=== PATIENT | male | born 1980 | race Two or more races ===

== ENCOUNTER 2019-10-30 00:33 | Inpatient (IN) | payer BC, MEDICAID ==
[~2019-10-30] VITALS: Ht 180.3 cm; Wt 110.2 kg
[~2019-10-30 00:33] MED LIST: ASPI-404 PO; LISI-275 PO
[2019-10-30 01:15] LABS: Basophils # (auto) 0.1 10 ^3/uL (0-0.2); Basophils % (auto) 0.6 % (0.0-2.0); Eosinophils # (auto) 0.1 10 ^3/uL (0-0.8); Eosinophils % (auto) 0.5 % (0.0-7.0); Hematocrit 44.8 % (41.0-53.0); Hemoglobin 15.2 g/dL (13.5-17.5); Lymphocytes # (auto) 2.5 10 ^3/uL (0.4-5.4); Lymphocytes % (auto) 18.7 % (10.0-50.0); Mean Corpuscular Hemoglobin 27.4 pg (28.0-32.0); Mean Corpuscular Hgb Conc. 33.8 g/dL (32.0-36.0); Monocytes # (auto) 0.7 10 ^3/uL (0-1.3); Monocytes % (auto) 5.7 % (0.0-12.0); Neutrophils # (auto) 9.8 10 ^3/uL (1.6-8.6); Neutrophils % (auto) 74.5 % (37.0-80.0); Nucleated Red Blood Cells % 0.1 %; Platelet Count (auto) 246 10^3/uL (140-450); Red Blood Cells 5.53 10^6/uL (4.5-5.90); Red Cell Distribution Width 14.4 % (11.8-14.3); White Blood Cell 13.1 10^3/uL (4.4-10.8)
[2019-10-30 01:35] LABS: Albumin 3.6 g/dL (3.4-5.0); Amylase 37 U/L (25-115); Anion Gap 7 (5-15); BUN/Creatinine Ratio 14.3; Blood Urea Nitrogen 12 mg/dL (7-18); Carbon Dioxide 24 mmol/L (21-32); Chloride 101 mmol/L (98-107); GFR African American 130 mL/min; GFR Non-African American 107 mL/min; Glucose 238 mg/dL (74-106); Lipase 86 U/L (73-393); Magnesium 2.1 mg/dL (1.6-2.6); Potassium 3.7 mmol/L (3.5-5.1); Sodium 132 mmol/L (136-145)
[2019-10-30 01:40] LABS: Alanine Aminotransferase 48 U/L (16-61); Alkaline Phosphatase 78 U/L (45-117); Aspartate Aminotransferase 19 U/L (15-37); Bilirubin, Total 0.3 mg/dL (0.2-1.0); Total Protein 8.1 g/dL (6.4-8.2)
[2019-10-30] MEDS ORDERED: ONDANSETRON HCL 4 MG/2 ML VIAL IV ONE (02:15)
[2019-10-30] MEDS ORDERED: MORPHINE SULFATE 4 MG/ML SYR/VIAL IV ONE ×2 (02:15→04:30)
[2019-10-30 02:21] LABS: INR 1.01 (0.9-1.15); Partial Thromboplastin Time 28.7 sec (23.64-32.05)
[2019-10-30] MEDS ORDERED: MORPHINE SULF INJ 2 MG/ML SYRINGE 1ML IV ONE (03:00)
[2019-10-30 03:05] LABS: Urine WBC None Seen /hpf (0 - 3)
[2019-10-30 03:34] LABS: Urine Amorphous Crystal FEW /hpf (None Seen); Urine Bacteria NONE SEEN /hpf (None Seen); Urine Blood Negative /uL (Negative); Urine Specific Gravity 1.023 (1.001-1.035)
[2019-10-30] MEDS ORDERED: SODIUM CHLORIDE 0.9% 1,000 ML IV SCH ×2 (05:48→19:25)
[2019-10-30] MEDS ORDERED: SODIUM CHLORIDE 0.9% 1,000 ML IV ONE (06:00)
[2019-10-30] MEDS ORDERED: ACETAMINOPHEN 325 MG TAB PO PRN (06:00)
[2019-10-30] MEDS ORDERED: DEXTROSE (50%) 50ML SYRG IV PRN (06:00)
[2019-10-30] MEDS ORDERED: DOCUSATE SOD 100 MG CAP PO PRN (06:00)
[2019-10-30 07:18] LABS: Basophils # (auto) 0.1 10 ^3/uL (0-0.2); Basophils % (auto) 0.4 % (0.0-2.0); Eosinophils # (auto) 0 10 ^3/uL (0-0.8); Hematocrit 42.7 % (41.0-53.0); Hemoglobin 14.6 g/dL (13.5-17.5); Lymphocytes # (auto) 1.7 10 ^3/uL (0.4-5.4); Lymphocytes % (auto) 10.6 % (10.0-50.0); Mean Corpuscular Hemoglobin 27.6 pg (28.0-32.0); Mean Corpuscular Hgb Conc. 34.1 g/dL (32.0-36.0); Mean Corpuscular Volume 81.1 fL (80.0-100.0); Monocytes # (auto) 0.8 10 ^3/uL (0-1.3); Monocytes % (auto) 4.9 % (0.0-12.0); Neutrophils # (auto) 13.2 10 ^3/uL (1.6-8.6); Neutrophils % (auto) 84.1 % (37.0-80.0); Platelet Count (auto) 210 10^3/uL (140-450); Red Blood Cells 5.26 10^6/uL (4.5-5.90); Red Cell Distribution Width 14.4 % (11.8-14.3); White Blood Cell 15.7 10^3/uL (4.4-10.8)
[2019-10-30 07:37] LABS: BUN/Creatinine Ratio 17.9
[2019-10-30] MEDS: ACCU-CHEK COMFORT CURVE STRIP VI SCH ×4 (07:44→20:01)
[2019-10-30] MEDS: InsuLIN REG 1unit/0.01ml Soln (100units/ml) SC SCH ×4 (07:45→20:12)
[2019-10-30] MEDS: MORPHINE SULFATE 4 MG/ML SYR/VIAL IV PRN ×2 (07:46→23:49)
[2019-10-30] MEDS: ONDANSETRON HCL 4 MG/2 ML VIAL IV PRN ×2 (07:46→23:48)
[2019-10-30] MEDS ORDERED: cefTRIAXone 1GM/50ML D5W 50 ML IV SCH (10:00)
[2019-10-30] MEDS: LISINOPRIL 20 MG TAB PO SCH (11:07)
[2019-10-30 12:00] VITALS: BP 132/73
[2019-10-30] MEDS: HYDROcodone-ACET 5/325MG TAB PO PRN ×2 (12:48→20:00)
[2019-10-30 12:50] VITALS: BP 157/87
[2019-10-30] MEDS ORDERED: LIDOCAINE 2%HCL (LOCAL ANESTH.) INJ 20ML MDV ONE (14:30)
[2019-10-30] MEDS ORDERED: fentaNYL CITRATE 100 MCG/2 ML VL IV ONE (14:45)
[2019-10-30] MEDS ORDERED: fentaNYL CITRATE 100 MCG/2 ML VL ONE (14:47)
[2019-10-30 16:53] VITALS: BP 111/53
[2019-10-30] MEDS ORDERED: levoFLOXacin 750MG 150 ML IV ONE (18:15)
[2019-10-30 21:59] VITALS: BP 110/67
[2019-10-30] MEDS ORDERED: INSULIN LANTUS (GLARGINE) 1 /0.01ml (100units/ml) SC SCH (22:00)
[2019-10-31] MEDS: ACCU-CHEK COMFORT CURVE STRIP VI SCH ×5 (00:08→16:28)
[2019-10-31] MEDS: InsuLIN REG 1unit/0.01ml Soln (100units/ml) SC SCH ×5 (00:10→16:29)
[2019-10-31] MEDS: HYDROcodone-ACET 5/325MG TAB PO PRN ×3 (04:20→12:57)
[2019-10-31 05:40] VITALS: BP 130/78
[2019-10-31] MEDS: LISINOPRIL 20 MG TAB PO SCH (09:03)
[2019-10-31 09:04] VITALS: BP 153/82
[2019-10-31] MEDS ORDERED: levoFLOXacin 750MG 150 ML IV SCH (10:00)
[2019-10-31] MEDS: MORPHINE SULFATE 4 MG/ML SYR/VIAL IV PRN (11:13)
[2019-10-31 13:13] VITALS: BP 156/83
[2019-10-31 14:21] LABS: Basophils # (auto) 0.1 10 ^3/uL (0-0.2); Basophils % (auto) 0.5 % (0.0-2.0); Eosinophils # (auto) 0 10 ^3/uL (0-0.8); Eosinophils % (auto) 0.1 % (0.0-7.0); Hematocrit 41.5 % (41.0-53.0); Hemoglobin 14.4 g/dL (13.5-17.5); Lymphocytes # (auto) 1.5 10 ^3/uL (0.4-5.4); Lymphocytes % (auto) 11.6 % (10.0-50.0); Mean Corpuscular Hemoglobin 28.3 pg (28.0-32.0); Mean Corpuscular Hgb Conc. 34.7 g/dL (32.0-36.0); Mean Corpuscular Volume 81.5 fL (80.0-100.0); Monocytes # (auto) 0.9 10 ^3/uL (0-1.3); Monocytes % (auto) 6.9 % (0.0-12.0); Neutrophils # (auto) 10.7 10 ^3/uL (1.6-8.6); Neutrophils % (auto) 80.9 % (37.0-80.0); Platelet Count (auto) 219 10^3/uL (140-450); Red Cell Distribution Width 14.3 % (11.8-14.3); White Blood Cell 13.2 10^3/uL (4.4-10.8)
[2019-10-31 14:43] LABS: BUN/Creatinine Ratio 17.9; Calcium 8.6 mg/dL (8.5-10.1); Potassium 3.8 mmol/L (3.5-5.1)
[2019-10-31] MEDS: ONDANSETRON HCL 4 MG/2 ML VIAL IV PRN (15:00)
[2019-10-31 16:47] VITALS: BP 139/85
[2019-10-31 17:20] VITALS: BP_SYST 139; BP_SYST 148; BP_DIAS 78; BP_DIAS 85
== END 2019-10-31 18:08 | disposition home or self-care (01) | DRG 699 ==
LOC: ER 00:33 → OVERFLOW 00:34 → WEST WING 08:38
PROVIDERS: ADMIT Hospitalist; ATTEND Internal Medicine Nephrology
PROC: 0T9 Urinary System, Drainage (ICD-10-PCS; principal; 2019-10-30)
DX: N28.1 Cyst of kidney, acquired (principal); R65.10 Systemic inflammatory response syndrome (SIRS) of non-infectious origin without acute organ dysfunction; I10 Essential (primary) hypertension; E66.9 Obesity, unspecified; E11.9 Type 2 diabetes mellitus without complications; Z82.49 Family history of ischemic heart disease and other diseases of the circulatory system; Z90.49 Acquired absence of other specified parts of digestive tract; Z79.899 Other long term (current) drug therapy; Z83.3 Family history of diabetes mellitus; Z84.1 Family history of disorders of kidney and ureter
CPT/HCPCS: 10022; 36415; 71046; 74150; 74176; 76775; 76942; 77012; 80048; 80053; 81001; 82150; 82962; 83036; 83690; 83735; 84484; 85025; 85610; 85730; 87205; 93005; A4223; G0378; J0696; J1815; J1956; J2405

== ENCOUNTER 2019-11-06 11:19 | Inpatient (IN) | payer BC ==
[~2019-11-06] VITALS: Ht 180.3 cm; Wt 108.0 kg
[~2019-11-06 11:19] MED LIST changes: -ASPI-404 PO; +ASPI-543 PO
[2019-11-06 12:11] LABS: Basophils # (auto) 0.1 10 ^3/uL (0-0.2); Basophils % (auto) 0.9 % (0.0-2.0); Eosinophils # (auto) 0.1 10 ^3/uL (0-0.8); Eosinophils % (auto) 1.7 % (0.0-7.0); Hematocrit 41.2 % (41.0-53.0); Lymphocytes # (auto) 2.1 10 ^3/uL (0.4-5.4); Lymphocytes % (auto) 27.9 % (10.0-50.0); Mean Corpuscular Hemoglobin 27.3 pg (28.0-32.0); Mean Corpuscular Volume 80.4 fL (80.0-100.0); Monocytes # (auto) 0.6 10 ^3/uL (0-1.3); Monocytes % (auto) 7.8 % (0.0-12.0); Neutrophils # (auto) 4.6 10 ^3/uL (1.6-8.6); Neutrophils % (auto) 61.7 % (37.0-80.0); Platelet Count (auto) 373 10^3/uL (140-450); Red Blood Cells 5.12 10^6/uL (4.5-5.90); Red Cell Distribution Width 13.6 % (11.8-14.3); White Blood Cell 7.4 10^3/uL (4.4-10.8)
[2019-11-06 12:22] LABS: Urine Bacteria NONE SEEN /hpf (None Seen); Urine Blood 3+ /uL (Negative); Urine Mucus FEW (None Seen); Urine WBC 669 /hpf (0 - 3); Urine WBC Clumps PRESENT /hpf (None Seen)
[2019-11-06 12:30] LABS: Urine Specific Gravity 1.035 (1.001-1.035)
[2019-11-06 12:36] LABS: Albumin 3.2 g/dL (3.4-5.0); Calcium 8.6 mg/dL (8.5-10.1); Potassium 3.6 mmol/L (3.5-5.1)
[2019-11-06 12:41] LABS: BUN/Creatinine Ratio 17.4; Bilirubin, Total 0.3 mg/dL (0.2-1.0); Total Protein 8.3 g/dL (6.4-8.2)
[2019-11-06] MEDS ORDERED: DEXTROSE (50%) 50ML SYRG IV PRN (12:45)
[2019-11-06] MEDS ORDERED: NITROGLYCERIN 0.4 MG SL TAB SL PRN (12:45)
[2019-11-06] MEDS ORDERED: ONDANSETRON HCL 4 MG/2 ML VIAL IV PRN (12:45)
[2019-11-06] MEDS ORDERED: ACETAMINOPHEN 500 MG TAB PO PRN (12:45)
[2019-11-06] MEDS ORDERED: cefTRIAXone 1GM/50ML D5W 50 ML IV ONE (12:45)
[2019-11-06] MEDS ORDERED: HYDROcodone-ACET 5/325MG TAB PO PRN (12:45)
[2019-11-06] MEDS ORDERED: MORPHINE SULF INJ 2 MG/ML SYRINGE 1ML IV PRN ×2 (12:45)
[2019-11-06] MEDS ORDERED: FAMOTIDINE 20 MG TAB PO ONE (13:15)
[2019-11-06] MEDS: SODIUM CHLORIDE 0.9% 1,000 ML IV SCH ×2 (13:28→22:42)
--- NOTE | 2019-11-06 13:45 | NUR ---
Telemetry admit from [facility] admitted to Telemetry unit after SBAR received. Patient oriented to JOVANA MCCOLLUM RN primary RN, unit, room, bed, and unit policies regarding patient care and visiting hours. Patient now on continuous telemetry monitoring, tele box # [id number] and telemetry reading on arrival to unit is . Patient weighed by bedscale and encouraged to call if they need something. All questions and concerns addressed, patient verbalized understanding. Note:
[2019-11-06] MEDS ORDERED: hydrALAZINE HCL 20 MG/ML VL IV PRN (14:15)
[2019-11-06] MEDS ORDERED: IOHEXOL 300 MG/ML 100ML BOTTLE IJ ONE (15:14)
[2019-11-06] MEDS ORDERED: INSLANTI SC (16:27)
[2019-11-06] MEDS ORDERED: INSUINJ18 SC (16:28)
[2019-11-06 16:30] VITALS: BP 138/82
[2019-11-06] MEDS: ACCU-CHEK COMFORT CURVE STRIP VI SCH ×2 (17:15→22:00)
--- NOTE | 2019-11-06 17:15 | NUR ---
POC POC BLOOD GLUCOSE 288mg/dL
[2019-11-06] MEDS: InsuLIN REG 1unit/0.01ml Soln (100units/ml) SC SCH ×2 (17:42→22:41)
[2019-11-06 22:00] VITALS: BP 126/74
--- NOTE | 2019-11-06 23:54 | NUR ---
2000: PATIENT RELAXING IN BED AWAKE AND WATCHING TV. DENEID PAIN. IVF INFISING. IV SITE CLEAR AND DRY
--- NOTE | 2019-11-06 23:55 | NUR ---
PATIENT SLEEPING AT THIS TIME.
--- NOTE | 2019-11-07 04:37 | NUR ---
0400: PATIENT SLEEPING. IV FLUID INFUSING.
[2019-11-07 05:00] VITALS: BP 139/87
[2019-11-07 06:14] LABS: Basophils # (auto) 0.1 10 ^3/uL (0-0.2); Basophils % (auto) 0.8 % (0.0-2.0); Eosinophils # (auto) 0.1 10 ^3/uL (0-0.8); Eosinophils % (auto) 1.5 % (0.0-7.0); Hematocrit 40.5 % (41.0-53.0); Hemoglobin 13.9 g/dL (13.5-17.5); Lymphocytes # (auto) 2.5 10 ^3/uL (0.4-5.4); Lymphocytes % (auto) 31.1 % (10.0-50.0); Mean Corpuscular Hemoglobin 27.9 pg (28.0-32.0); Mean Corpuscular Hgb Conc. 34.3 g/dL (32.0-36.0); Mean Corpuscular Volume 81.3 fL (80.0-100.0); Monocytes # (auto) 0.5 10 ^3/uL (0-1.3); Monocytes % (auto) 5.8 % (0.0-12.0); Neutrophils % (auto) 60.8 % (37.0-80.0); Nucleated Red Blood Cells % 0.2 %; Platelet Count (auto) 361 10^3/uL (140-450); Red Blood Cells 4.98 10^6/uL (4.5-5.90); Red Cell Distribution Width 13.4 % (11.8-14.3); White Blood Cell 8.2 10^3/uL (4.4-10.8)
[2019-11-07 06:28] LABS: Potassium 4.2 mmol/L (3.5-5.1)
[2019-11-07] MEDS: ACCU-CHEK COMFORT CURVE STRIP VI SCH ×4 (06:29→22:09)
[2019-11-07 06:33] LABS: BUN/Creatinine Ratio 16.3; Calcium 8.5 mg/dL (8.5-10.1)
[2019-11-07] MEDS: InsuLIN REG 1unit/0.01ml Soln (100units/ml) SC SCH ×2 (06:35→18:05)
[2019-11-07] MEDS: cefTRIAXone 1GM/50ML D5W 50 ML IV SCH (08:55)
[2019-11-07] MEDS: SODIUM CHLORIDE 0.9% 1,000 ML IV SCH ×3 (08:56→22:08)
[2019-11-07 09:05] VITALS: BP 131/66
[2019-11-07] MEDS: FAMOTIDINE 20 MG TAB PO SCH (09:17)
[2019-11-07] MEDS: amLODIPine BESYLATE 5 MG TAB PO SCH (09:17)
[2019-11-07] MEDS ORDERED: INSULIN LANTUS (GLARGINE) 1 /0.01ml (100units/ml) SC SCH (10:00)
[2019-11-07] MEDS ORDERED: DEXTROSE (50%) 50ML SYRG IV PRN (12:15)
[2019-11-07 12:45] VITALS: BP 132/82
[2019-11-07] MEDS ORDERED: INSLANTI SC (13:38)
[2019-11-07] MEDS ORDERED: INSU100I4 SC (13:38)
[2019-11-07] MEDS ORDERED: OMEG100078 PO (13:39)
[2019-11-07 16:39] VITALS: BP 126/73
[2019-11-07 22:00] VITALS: BP 106/77
[2019-11-07] MEDS ORDERED: InsuLIN REG 1unit/0.01ml Soln (100units/ml) SC SCH (22:00)
--- NOTE | 2019-11-08 04:06 | NUR ---
PAIN SEEN. SLEEPING. IVF INFUSING. IV SITE CLEAR AND DRY.
[2019-11-08 05:00] VITALS: BP 114/80
[2019-11-08 05:54] LABS: Basophils # (auto) 0.1 10 ^3/uL (0-0.2); Basophils % (auto) 0.7 % (0.0-2.0); Eosinophils # (auto) 0.2 10 ^3/uL (0-0.8); Eosinophils % (auto) 1.9 % (0.0-7.0); Hematocrit 39.9 % (41.0-53.0); Hemoglobin 13.7 g/dL (13.5-17.5); Lymphocytes # (auto) 2.8 10 ^3/uL (0.4-5.4); Lymphocytes % (auto) 33.2 % (10.0-50.0); Mean Corpuscular Hemoglobin 27.7 pg (28.0-32.0); Mean Corpuscular Hgb Conc. 34.3 g/dL (32.0-36.0); Mean Corpuscular Volume 80.8 fL (80.0-100.0); Monocytes # (auto) 0.6 10 ^3/uL (0-1.3); Monocytes % (auto) 7.1 % (0.0-12.0); Neutrophils # (auto) 4.9 10 ^3/uL (1.6-8.6); Neutrophils % (auto) 57.1 % (37.0-80.0); Nucleated Red Blood Cells % 0.1 %; Platelet Count (auto) 365 10^3/uL (140-450); Red Blood Cells 4.93 10^6/uL (4.5-5.90); Red Cell Distribution Width 13.6 % (11.8-14.3); White Blood Cell 8.6 10^3/uL (4.4-10.8)
[2019-11-08 06:04] LABS: INR 1.04 (0.9-1.15); Partial Thromboplastin Time 30.6 sec (23.64-32.05)
[2019-11-08 06:15] LABS: BUN/Creatinine Ratio 13.7; Calcium 8.4 mg/dL (8.5-10.1); Potassium 3.8 mmol/L (3.5-5.1)
[2019-11-08] MEDS: InsuLIN REG 1unit/0.01ml Soln (100units/ml) SC SCH ×2 (06:40→11:35)
[2019-11-08] MEDS: ACCU-CHEK COMFORT CURVE STRIP VI SCH ×2 (06:41→11:33)
[2019-11-08 09:00] VITALS: BP 134/84
[2019-11-08] MEDS ORDERED: INSULIN LANTUS (GLARGINE) 1 /0.01ml (100units/ml) SC SCH (10:00)
[2019-11-08] MEDS: FAMOTIDINE 20 MG TAB PO SCH (10:13)
[2019-11-08] MEDS: cefTRIAXone 1GM/50ML D5W 50 ML IV SCH (10:13)
[2019-11-08] MEDS: amLODIPine BESYLATE 5 MG TAB PO SCH (10:14)
[2019-11-08 13:00] VITALS: BP 137/86
--- NOTE | 2019-11-08 15:15 | NUR ---
Discharge Went over discharge paperwork with patient. Gave prescription to patient. Removed IV intact, no problems. Removed telemetry and sent to ICU per hospital protocol. Patient left with all personal belongings in private vehicle. He was picked up by family member.
== END 2019-11-08 14:45 | disposition home or self-care (01) | DRG 700 ==
LOC: ER 11:19 → TELE 11:20 → TELE-CENTR 14:22
PROVIDERS: ADMIT Nurse Practitioner Acute Care; ATTEND Internal Medicine
DX: N28.1 Cyst of kidney, acquired (principal); I10 Essential (primary) hypertension; N30.90 Cystitis, unspecified without hematuria; E66.9 Obesity, unspecified; N28.89 Other specified disorders of kidney and ureter; Z79.4 Long term (current) use of insulin; Z82.49 Family history of ischemic heart disease and other diseases of the circulatory system; Z90.49 Acquired absence of other specified parts of digestive tract; Z83.3 Family history of diabetes mellitus; Z79.899 Other long term (current) drug therapy; Z68.33 Body mass index [BMI] 33.0-33.9, adult
CPT/HCPCS: 36415; 74176; 74177; 80048; 80053; 81001; 82962; 83036; 85025; 85610; 85730; 87081; 87086; G0378; J0696; J1815; J2405

== ENCOUNTER 2022-09-28 20:26 | Emergency (ER) | payer BC, OTHER ==
[~2022-09-28] VITALS: Ht 180.3 cm; Wt 109.0 kg
[~2022-09-28 20:26] MED LIST changes: -ASPI-543 PO; +INSLANTI SC; +INSU100I4 SC; +OMEG100078 PO
[2022-09-28] MEDS ORDERED: AZITTAB PO ×2 (23:37)
[2022-09-28] MEDS ORDERED: ACET1CAP14 PO ×2 (23:37)
[2022-09-28] MEDS ORDERED: PROM1SOL4 PO ×2 (23:37)
[2022-09-29] MEDS ORDERED: ACET1CAP14 PO (00:04)
[2022-09-29] MEDS ORDERED: PROM1SOL4 PO (00:04)
[2022-09-29] MEDS ORDERED: AZITTAB PO (00:04)
[2022-09-29 00:05] VITALS: BP 133/80
[2022-09-29] MEDS ORDERED: ALBU108A5 IN (00:05)
[2022-09-29] MEDS ORDERED: guaiFENesin-DM 100/10mg/5ml SYR PO ONE (00:15)
== END 2022-09-29 00:55 | disposition home or self-care (01) ==
LOC: ER 20:28
DX: S46.912A Strain of unspecified muscle, fascia and tendon at shoulder and upper arm level, left arm, initial encounter (principal); J40 Bronchitis, not specified as acute or chronic; R11.2 Nausea with vomiting, unspecified; R19.7 Diarrhea, unspecified; E11.9 Type 2 diabetes mellitus without complications; I10 Essential (primary) hypertension; Z90.49 Acquired absence of other specified parts of digestive tract; X50.0XXA Overexertion from strenuous movement or load, initial encounter; X50.9XXA Other and unspecified overexertion or strenuous movements or postures, initial encounter; Y93.89 Activity, other specified; Y92.89 Other specified places as the place of occurrence of the external cause; Y99.8 Other external cause status
CPT/HCPCS: 71045; 73030

== ENCOUNTER 2025-01-19 01:26 | Emergency (ER) | payer OTHER ==
[~2025-01-19] VITALS: Ht 177.8 cm; Wt 107.7 kg
[~2025-01-19 01:26] MED LIST changes: +ACET1CAP14 PO; +ALBU108A5 IN; +AZITTAB PO; +OMEG-20 PO; -OMEG100078 PO; +PROM1SOL4 PO
[2025-01-19] MEDS ORDERED: IBUP-1455 PO (02:21)
[2025-01-19] MEDS ORDERED: HYDR-4902 PO (02:21)
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
[2025-01-19] MEDS: KETOROLAC TROMETH 60MG/2ML VIAL IM ONE (03:36)
[2025-01-19] MEDS: HYDROcodone-ACET 5/325MG TAB PO ONE (03:36)
[2025-01-19] MEDS: TETANUS-DIPTH-ACEL PERTUSSIS 0.5ML SYR Tdap IM ONE (03:37)
[2025-01-19 03:42] VITALS: BP 147/81; PULSE 83; RESP 16; TEMP 98.2; O2SAT 96
== END 2025-01-19 03:46 | disposition home or self-care (01) ==
LOC: ER 01:26
DX: L03.011 Cellulitis of right finger (principal); I10 Essential (primary) hypertension; E11.9 Type 2 diabetes mellitus without complications; E66.01 Morbid (severe) obesity due to excess calories; Z68.34 Body mass index [BMI] 34.0-34.9, adult; Z90.49 Acquired absence of other specified parts of digestive tract; Z79.4 Long term (current) use of insulin; Z79.899 Other long term (current) drug therapy
CPT/HCPCS: 82947; 90471; 90715; 96372; 99284; J1885